=== PATIENT | female | born 1985 | race African-American/Black ===

== ENCOUNTER 2019-08-18 15:22 | Emergency (ER) | payer OTHER ==
[~2019-08-18] VITALS: Ht 162.6 cm; Wt 95.6 kg
[2019-08-18] MEDS ORDERED: prenatal vitamin (15:30)
[2019-08-18] MEDS ORDERED: ACETAMINOPHEN 325 MG TAB PO ONE (18:15)
[2019-08-18 19:09] LABS: BASO % 0.5 % (0.0-1.0); EOS # 0.1 10^3/uL (0.0-0.5); EOS % 0.7 % (0.0-3.0); HEMATOCRIT 41.8 % (36.0-47.0); HEMOGLOBIN 13.5 g/dl (12.0-15.5); LYMPH # 2.9 10^3/uL (1.5-5.0); LYMPH % 34.6 % (24.0-44.0); MEAN CORPUSCULAR HEMOGLOBIN 28.4 pg (27.0-33.0); MEAN CORPUSCULAR HGB CONC 32.3 g/dl (32.0-36.5); MEAN CORPUSCULAR VOLUME 87.8 fl (80.0-96.0); MONO # 0.5 10^3/uL (0.0-0.8); MONO % 5.9 % (0.0-5.0); NEUTROPHILS # 4.8 10^3/uL (1.5-8.5); NEUTROPHILS % 57.9 % (36.0-66.0); PLATELET COUNT, AUTOMATED 204 10^3/uL (150-450); RED BLOOD COUNT 4.76 10^6/uL (4.00-5.40); WHITE BLOOD COUNT 8.4 10^3/uL (4.0-10.0)
[2019-08-18 19:14] LABS: APPEARANCE, URINE CLOUDY (CLEAR); BACTERIA, URINE AUTO 2+ (NEGATIVE); BILIRUBIN, URINE AUTO NEGATIVE (NEGATIVE); BLOOD, URINE BLOOD NEGATIVE (NEGATIVE); COLOR, URINE YELLOW (YELLOW); GLUCOSE, URINE (UA) AUTO NEGATIVE (NEGATIVE); KETONE, URINE AUTO TRACE mg/dL (NEGATIVE); LEUKOCYTE ESTERASE, URINE AUTO 1+ (NEGATIVE); MUCUS, URINE SMALL (NEGATIVE); NITRITE, URINE AUTO POSITIVE (NEGATIVE); PROTEIN, URINE AUTO NEGATIVE (NEGATIVE); RBC, URINE AUTO 2 /HPF (0-3); SPECIFIC GRAVITY URINE AUTO 1.014 (1.002-1.035); SQUAMOUS EPITHELIAL CELL UR AU 20 /HPF (0-6); UROBILINOGEN, URINE AUTO 0.2 mg/dL (0.0-2.0); WBC, URINE AUTO 24 /HPF (0-3)
[2019-08-18 19:31] VITALS: BP 113/59
--- NOTE | 2019-08-18 19:50 | REPVR ---
PROCEDURE INFORMATION: Exam: US First Trimester, Transabdominal Exam date and time: 08/18/2019 6:37 PM Age: 34 years old Clinical indication: complicated by abdominal or pelvic pain; Lower; First trimester; Gestational age or lmp: 5; ; Additional info: Early preg, llq pain, HX of fibroids, ? ectopic TECHNIQUE: Imaging protocol: Real-time transabdominal obstetrical ultrasound of the maternal pelvis and a first trimester , less than 14 weeks 0 days, with image documentation. COMPARISON: No relevant prior studies available. FINDINGS: GESTATION: Gestation: A yolk sac is apparent. There is a live single intrauterine gestation with crown-rump length of 2 mm consistent with 5 week 5 day gestation. Heart rate: heart rate is 89 bpm. Placenta: No subchorionic hemorrhage is identified. Amniotic fluid: Amniotic and chorionic fluid are normal for gestational age. BIOMETRY: Estimated gestational age: 5 weeks 5 days. MATERNAL: Uterus: Two uterine leiomyomata are identified 1st measuring 3.1 x 3.2 x 3.5 cm and the 2nd measuring 4.0 x 4.2 x 4.3 cm. Cervix: Unremarkable. Right adnexa: Right ovary measures 4.4 x 2.8 by 3.4 cm. There may be a corpus luteum. Left adnexa: Left ovary measures 2.7 x 2.8 by 3.9 cm. Intraperitoneal: No intraperitoneal free fluid. Maternal urinary bladder: The maternal urinary bladder is unremarkable. IMPRESSION: Live single intrauterine gestation with ultrasound age of 5 weeks 5 days by crown-rump length with an SHARI of 04/14/2020. Electronically signed by: Slime Morton On 08/18/2019 19:50:16 PM
[2019-08-18 19:55] LABS: ALBUMIN 3.4 GM/DL (3.2-5.2); ALT/SGPT 18 U/L (12-78); BILIRUBIN,TOTAL 0.4 MG/DL (0.2-1.0); BLOOD UREA NITROGEN 8 MG/DL (7-18); CALCIUM LEVEL 8.3 MG/DL (8.5-10.1); CARBON DIOXIDE LEVEL 23 MEQ/L (21-32); CHLORIDE LEVEL 109 MEQ/L (98-107); CREATININE FOR GFR 0.74 MG/DL (0.55-1.30); GLOMERULAR FILTRATION RATE > 60.0 (>60); GLUCOSE, FASTING 76 MG/DL (70-100); HCG, SERUM QUANTITATIVE 4182 MIU/ML; LIPASE 93 U/L (73-393); POTASSIUM SERUM 3.3 MEQ/L (3.5-5.1); SODIUM LEVEL 140 MEQ/L (136-145); TOTAL PROTEIN 6.9 GM/DL (6.4-8.2)
[2019-08-18] MEDS ORDERED: MACR100C43 PO (20:20)
[2019-08-18] MEDS ORDERED: NITROFURANTOIN (MACROBID) 100 MG CAP PO ONE (20:30)
== END 2019-08-18 20:31 | disposition home or self-care (01) ==
LOC: M ED 15:22
DX: O23.41 Unspecified infection of urinary tract in pregnancy, first trimester (principal); Z3A.01 Less than 8 weeks gestation of pregnancy; Z98.890 Other specified postprocedural states

== ENCOUNTER 2019-09-08 07:18 | Emergency (ER) | payer OTHER ==
[~2019-09-08] VITALS: Ht 162.6 cm; Wt 93.5 kg
[~2019-09-08 07:18] MED LIST: MACR100C43 PO; prenatal vitamin
[2019-09-08] MEDS ORDERED: KEFL250C11 PO (07:25)
[2019-09-08 08:14] LABS: BASO # 0.1 10^3/uL (0.0-0.2); BASO % 0.6 % (0.0-1.0); EOS # 0.1 10^3/uL (0.0-0.5); EOS % 1.5 % (0.0-3.0); HEMATOCRIT 39.5 % (36.0-47.0); HEMOGLOBIN 13.3 g/dl (12.0-15.5); LYMPH # 1.9 10^3/uL (1.5-5.0); LYMPH % 22.7 % (24.0-44.0); MEAN CORPUSCULAR HEMOGLOBIN 29.1 pg (27.0-33.0); MEAN CORPUSCULAR HGB CONC 33.7 g/dl (32.0-36.5); MEAN CORPUSCULAR VOLUME 86.4 fl (80.0-96.0); MONO # 0.4 10^3/uL (0.0-0.8); MONO % 4.5 % (0.0-5.0); NEUTROPHILS # 5.8 10^3/uL (1.5-8.5); NEUTROPHILS % 70.5 % (36.0-66.0); PLATELET COUNT, AUTOMATED 205 10^3/uL (150-450); RED BLOOD COUNT 4.57 10^6/uL (4.00-5.40); WHITE BLOOD COUNT 8.3 10^3/uL (4.0-10.0)
[2019-09-08 08:34] LABS: BLOOD UREA NITROGEN 9 MG/DL (7-18); CALCIUM LEVEL 8.7 MG/DL (8.5-10.1); CARBON DIOXIDE LEVEL 26 MEQ/L (21-32); CHLORIDE LEVEL 107 MEQ/L (98-107); CREATININE FOR GFR 0.86 MG/DL (0.55-1.30); GLOMERULAR FILTRATION RATE > 60.0 (>60); GLUCOSE, FASTING 116 MG/DL (70-100); POTASSIUM SERUM 4.2 MEQ/L (3.5-5.1); SODIUM LEVEL 139 MEQ/L (136-145)
--- NOTE | 2019-09-08 08:54 | REP ---
Clinical: Positive test with vaginal bleeding. Comparison: 08/18/2019 Technique: Transabdominal first trimester obstetrical ultrasound with color Doppler evaluation. Findings: Heterogeneous anteverted uterus measures 14.1 x 6.3 x 9.3 cm. Endometrial complex is thickened to 17.2 mm and the previously identified early intrauterine is no longer present. Hemorrhagic debris is identified in the vaginal canal and findings are consistent with spontaneous in progress. Lower uterine segment fibroid measures 4.1 cm maximal diameter and a left intramural fibroid measures 7.3 cm maximal diameter. Bilateral ovaries are normal in appearance and vascularity without torsion. Right ovary measures 4.2 x 2.4 x 3.8 cm (RI 0.72). Left ovary measures 2.8 x 2.5 x 2.6 cm (RI 0.68). No pelvic fluid or adnexal mass lesion. Impression: 1. Findings consistent with spontaneous in progress. 2. Leiomyomatous changes. Electronically Signed by Maicol Sepulveda MD 09/08/2019 08:47 A
[2019-09-08 09:34] LABS: HCG, SERUM QUANTITATIVE 3860 MIU/ML
[2019-09-08 09:40] VITALS: BP 105/55
--- NOTE | 2019-09-09 11:15 | ED PDOC ---
Post-Departure Follow-Up radiology report faxed to [facility] Tita Barbosa MD Sep 09, 2019 11:15
== END 2019-09-08 09:47 | disposition home or self-care (01) ==
LOC: M ED 07:18
DX: O03.9 Complete or unspecified spontaneous abortion without complication (principal); Z3A.08 8 weeks gestation of pregnancy; D25.9 Leiomyoma of uterus, unspecified; Z79.899 Other long term (current) drug therapy

== ENCOUNTER → 2019-09-10 | Outpatient (CLI) | payer OTHER ==
[~2019-09-10] MED LIST changes: +KEFL250C11 PO
--- NOTE | 2019-09-10 17:29 | REPVR ---
PROCEDURE INFORMATION: Exam: US First Trimester, Transabdominal Exam date and time: 09/10/2019 4:30 PM Age: 34 years old Clinical indication: Screening exam; Other: Rpoc; ; Additional info: R/O poc TECHNIQUE: Imaging protocol: Real-time transabdominal obstetrical ultrasound of the maternal pelvis and a first trimester , less than 14 weeks 0 days, with image documentation. COMPARISON: 1ST TRIMESTER US 08/18/2019 6:43 PM FINDINGS: GESTATION: Status post early loss at 8.5 weeks. MATERNAL: Uterus: Uterus measures 12.8 x 6.5 x 8.4 cm. Multiple complex predominantly hypoechoic mass is demonstrated within myometrium the largest located in the left posterior subserosal region measuring 4.4 x 3.9 x 2.8 cm. Findings consistent with the presence of fibroids. Endometrial echo complex measures 8.5 mm. No endometrial mass, hypoechoic or echogenic demonstrated. Cervix: Trace fluid demonstrated in the endocervical canal. Right adnexa: Right ovary measures 3.3 x 1.8 x 2.5 cm. Volume 7.8 cc. Right ovarian cyst measures 1.8 x 1.9 x 2.2 cm. Left adnexa: Left ovary measures 3.2 x 1.9 x 2.5 cm. Volume 7.9 cc. Intraperitoneal: No intraperitoneal free fluid. IMPRESSION: 1. Uterine fibroids. 2. No evidence of retained products of conception. 3. No adnexal masses. Electronically signed by: Denis Barbour On 09/10/2019 17:29:08 PM
== END ==
LOC: M RAD 15:47
PROVIDERS: ATTEND Registered Nurse Maternal Newborn
DX: O03.9 Complete or unspecified spontaneous abortion without complication (principal); D25.2 Subserosal leiomyoma of uterus

== ENCOUNTER → 2019-09-10 | Outpatient (CLI) | payer OTHER ==
[2019-09-10 18:09] LABS: BASO # 0.1 10^3/uL (0.0-0.2); BASO % 0.9 % (0.0-1.0); EOS # 0.1 10^3/uL (0.0-0.5); EOS % 1.4 % (0.0-3.0); HEMATOCRIT 38.3 % (36.0-47.0); HEMOGLOBIN 12.9 g/dl (12.0-15.5); LYMPH # 2.8 10^3/uL (1.5-5.0); LYMPH % 39.6 % (24.0-44.0); MEAN CORPUSCULAR HEMOGLOBIN 29.6 pg (27.0-33.0); MEAN CORPUSCULAR HGB CONC 33.7 g/dl (32.0-36.5); MEAN CORPUSCULAR VOLUME 87.8 fl (80.0-96.0); MONO # 0.5 10^3/uL (0.0-0.8); MONO % 6.6 % (0.0-5.0); NEUTROPHILS # 3.6 10^3/uL (1.5-8.5); NEUTROPHILS % 51.2 % (36.0-66.0); PLATELET COUNT, AUTOMATED 203 10^3/uL (150-450); RED BLOOD COUNT 4.36 10^6/uL (4.00-5.40)
== END ==
LOC: M LAB 17:14
PROVIDERS: ATTEND Registered Nurse Maternal Newborn
DX: Z87.59 Personal history of other complications of pregnancy, childbirth and the puerperium (principal)

== ENCOUNTER 2019-09-19 02:38 | Emergency (ER) | payer OTHER ==
[~2019-09-19] VITALS: Ht 165.1 cm; Wt 94.2 kg
[2019-09-19 03:55] LABS: INFLUENZA A AMPLIFICATION NEGATIVE (NEGATIVE); INFLUENZA B AMPLIFICATION NEGATIVE (NEGATIVE)
[2019-09-19 04:27] LABS: BASO # 0.1 10^3/uL (0.0-0.2); BASO % 0.8 % (0.0-1.0); EOS # 0.1 10^3/uL (0.0-0.5); EOS % 1.5 % (0.0-3.0); HEMATOCRIT 37.9 % (36.0-47.0); HEMOGLOBIN 12.4 g/dl (12.0-15.5); LYMPH # 2.7 10^3/uL (1.5-5.0); LYMPH % 44.2 % (24.0-44.0); MEAN CORPUSCULAR HEMOGLOBIN 28.8 pg (27.0-33.0); MEAN CORPUSCULAR HGB CONC 32.7 g/dl (32.0-36.5); MEAN CORPUSCULAR VOLUME 87.9 fl (80.0-96.0); MONO # 0.5 10^3/uL (0.0-0.8); MONO % 7.4 % (0.0-5.0); NEUTROPHILS # 2.8 10^3/uL (1.5-8.5); NEUTROPHILS % 45.9 % (36.0-66.0); PLATELET COUNT, AUTOMATED 212 10^3/uL (150-450); RED BLOOD COUNT 4.31 10^6/uL (4.00-5.40); WHITE BLOOD COUNT 6.1 10^3/uL (4.0-10.0)
[2019-09-19 04:56] LABS: BLOOD UREA NITROGEN 12 MG/DL (7-18); CALCIUM LEVEL 8.4 MG/DL (8.5-10.1); CARBON DIOXIDE LEVEL 26 MEQ/L (21-32); CHLORIDE LEVEL 112 MEQ/L (98-107); CREATININE FOR GFR 0.84 MG/DL (0.55-1.30); GLOMERULAR FILTRATION RATE > 60.0 (>60); GLUCOSE, FASTING 102 MG/DL (70-100); HCG, SERUM QUANTITATIVE 17 MIU/ML; POTASSIUM SERUM 3.9 MEQ/L (3.5-5.1); SODIUM LEVEL 143 MEQ/L (136-145)
[2019-09-19 06:39] VITALS: BP 123/70
== END 2019-09-19 06:41 | disposition home or self-care (01) ==
LOC: M ED 02:38
DX: F45.9 Somatoform disorder, unspecified (principal); F32.9 Major depressive disorder, single episode, unspecified; D25.9 Leiomyoma of uterus, unspecified; Z87.59 Personal history of other complications of pregnancy, childbirth and the puerperium; Z79.899 Other long term (current) drug therapy

== ENCOUNTER 2019-10-13 03:34 | Emergency (ER) | payer OTHER ==
[~2019-10-13] VITALS: Ht 162.6 cm; Wt 81.8 kg
[~2019-10-13 03:34] MED LIST changes: +KEFL500C17 PO
[2019-10-13] MEDS ORDERED: BENZONATATE 100 MG CAP PO ONE (04:00)
[2019-10-13] MEDS ORDERED: TESS100C PO (04:35)
[2019-10-13 04:52] VITALS: BP 133/73
--- NOTE | 2019-10-13 08:02 | REP ---
Clinical: Cough . Comparison: None . Findings: The mediastinum and cardiac silhouette are stable and within normal limits for portable technique. The lung rodriguez are clear without acute consolidation, effusion, or pneumothorax. Skeletal structures are intact. Impression: No acute cardiopulmonary process appreciated. Electronically Signed by Maicol Sepulveda MD 10/13/2019 07:54 A
== END 2019-10-13 04:54 | disposition home or self-care (01) ==
LOC: M ED 03:34
DX: R05 Cough (principal); R06.02 Shortness of breath
CPT/HCPCS: 71045; 87486; 87581; 87633; 87798; 99283; U0002

== ENCOUNTER → 2019-10-31 | Outpatient (CLI) | payer OTHER ==
[~2019-10-31] MED LIST changes: +TESS100C PO
--- NOTE | 2019-11-01 07:42 | REP ---
TWO-VIEW CHEST: REASON: Intermittent cough times four weeks. COMPARISON: No priors. FINDINGS: The superior mediastinal structures are midline. The cardiac silhouette is unremarkable in size, shape, and position. The diaphragmatic surfaces of the lungs are regular, and the costophrenic angles are clear. The pulmonary rodriguez are clear. The imaged osseous structures are intact. IMPRESSION: There is no acute cardiopulmonary disease. Electronically Signed by Juan Carols Paulino DO 11/01/2019 08:09 A
--- NOTE | 2019-11-01 07:44 | REP ---
FOOT: REASON: Atraumatic pain. COMPARISON: None. FINDINGS: The joint spaces are symmetric and relatively well maintained. There is no evidence of acute fracture or destructive osseous lesion. IMPRESSION: Negative. Note is made of an os naviculare. Electronically Signed by Juan Carlos Paulino DO 11/01/2019 08:09 A
== END ==
LOC: M LRY 15:55
PROVIDERS: ATTEND Physician Assistant
DX: R05 Cough (principal); M79.671 Pain in right foot

== ENCOUNTER 2019-11-17 22:47 | Emergency (ER) | payer OTHER ==
[~2019-11-17] VITALS: Ht 162.6 cm; Wt 95.6 kg
[2019-11-17] MEDS ORDERED: MAPA500T2 PO (22:53)
[2019-11-17] MEDS ORDERED: CETIRIZINE (ZyrTEC) 10 MG TAB PO ONE (23:45)
[2019-11-17] MEDS ORDERED: ALBUTEROL 90 MCG/ACT 8GM HFA INHALER INH ONE (23:45)
[2019-11-17] MEDS ORDERED: NAPROXEN 250 MG TAB PO ONE (23:45)
[2019-11-18] MEDS ORDERED: BENZONATATE 100 MG CAP PO ONE
[2019-11-18] MEDS ORDERED: NS 1,000 ML IV ONE (00:15)
[2019-11-18 01:10] LABS: BASO % 0.5 % (0.0-1.0); EOS # 0.1 10^3/uL (0.0-0.5); EOS % 1.2 % (0.0-3.0); HEMATOCRIT 38.3 % (36.0-47.0); HEMOGLOBIN 12.9 g/dl (12.0-15.5); LYMPH # 2.9 10^3/uL (1.5-5.0); LYMPH % 38.7 % (24.0-44.0); MEAN CORPUSCULAR HEMOGLOBIN 29.2 pg (27.0-33.0); MEAN CORPUSCULAR HGB CONC 33.7 g/dl (32.0-36.5); MEAN CORPUSCULAR VOLUME 86.7 fl (80.0-96.0); MONO # 0.4 10^3/uL (0.0-0.8); MONO % 5.7 % (0.0-5.0); NEUTROPHILS # 4.1 10^3/uL (1.5-8.5); NEUTROPHILS % 53.6 % (36.0-66.0); PLATELET COUNT, AUTOMATED 170 10^3/uL (150-450); RED BLOOD COUNT 4.42 10^6/uL (4.00-5.40); WHITE BLOOD COUNT 7.6 10^3/uL (4.0-10.0)
[2019-11-18 01:27] LABS: HCG, SERUM QUALITATIVE NEGATIVE (NEGATIVE)
[2019-11-18 01:28] LABS: ERYTHROCYTE SEDIMENTATION RATE 13 mm/hr (0-20)
[2019-11-18 01:35] LABS: ALBUMIN 3.5 GM/DL (3.2-5.2); ALT/SGPT 29 U/L (12-78); BILIRUBIN,TOTAL 0.3 MG/DL (0.2-1.0); BLOOD UREA NITROGEN 14 MG/DL (7-18); C REACTIVE PROTEIN QUANTITATIV 0.48 MG/DL (0.00-0.30); CALCIUM LEVEL 8.8 MG/DL (8.5-10.1); CARBON DIOXIDE LEVEL 28 MEQ/L (21-32); CHLORIDE LEVEL 106 MEQ/L (98-107); CK-MB VALUE MASS < 1.0 NG/ML (<3.6); CPK CREATINE PHOSPHOKINASE 95 U/L (26-192); CREATININE FOR GFR 0.92 MG/DL (0.55-1.30); FREE THYROXINE INDEX 2.8 % (1.3-4.8); GLOMERULAR FILTRATION RATE > 60.0 (>60); GLUCOSE, FASTING 110 MG/DL (70-100); MAGNESIUM LEVEL 1.6 MG/DL (1.8-2.4); MB/CK RELATIVE INDEX 1.05 (< OR =4); POTASSIUM SERUM 3.7 MEQ/L (3.5-5.1); SODIUM LEVEL 139 MEQ/L (136-145); T UPTAKE 37 % (30-39); THYROXINE (T4) 7.7 UG/DL (4.5-12.0); TOTAL PROTEIN 7.3 GM/DL (6.4-8.2); TROPONIN I < 0.02 NG/ML (< 0.10)
[2019-11-18] MEDS ORDERED: MAGICMW SSP (01:36)
[2019-11-18] MEDS ORDERED: NAPR-837 PO (01:36)
[2019-11-18] MEDS ORDERED: PROAAER10 INH (01:36)
[2019-11-18] MEDS ORDERED: TESS100C PO (01:36)
[2019-11-18 02:45] VITALS: BP 134/69
--- NOTE | 2019-11-18 02:49 | REP ---
Clinical: Dyspnea. Alvarez virus workup. Comparison: 10/31/2019 . Findings: The mediastinum and cardiac silhouette are stable and within normal limits for portable technique. The lung rodriguez are clear without acute consolidation, effusion, or pneumothorax. Skeletal structures are intact. Impression: No acute cardiopulmonary process appreciated. Electronically Signed by Maicol Sepulveda MD 11/18/2019 02:40 A
--- NOTE | 2019-11-18 16:41 | ECGEPIP ---
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
[2019-11-19 14:16] LABS: ANTINUCLEAR ANTIBODIES DIRECT Negative (Negative)
--- NOTE | 2019-11-19 23:13 | ED PDOC ---
Post-Departure Follow-Up I called patient yesterday 11/18/2019 with negative respiratory test results and instructed her to stay home in quarantine until she hears from [facility] regarding her COVID-19 test results. I then called patient jarrod 11/19/2019 regarding her COVID-19 test results, the patient stated that [facility] had not called her with the results today. I told her that the results were negative and that she does not need to remain in quarantine. The patient stated that she is feeling much better since taking the medications I prescribed the other night. She will followup with her primary care provider. 11/19/2019 [id number] STACEY MULTANI PA-C Nov 19, 2019 23:13
== END 2019-11-18 03:06 | disposition home or self-care (01) ==
LOC: M ED 22:47
DX: M79.10 Myalgia, unspecified site (principal); R68.83 Chills (without fever); R07.89 Other chest pain; R05 Cough; R51 Headache; J02.9 Acute pharyngitis, unspecified; Z20.828 Contact with and (suspected) exposure to other viral communicable diseases; Z79.899 Other long term (current) drug therapy; Z79.1 Long term (current) use of non-steroidal anti-inflammatories (NSAID)
CPT/HCPCS: 71045; 80047; 80053; 82550; 82553; 83735; 84436; 84443; 84479; 84484; 84703; 85025; 85652; 86038; 86140; 87486; 87581; 87633; 87798; 93005; 96360; 96361; 99284; U0002

== ENCOUNTER → 2019-12-08 | Outpatient (CLI) | payer OTHER ==
[~2019-12-08] MED LIST changes: +MAGICMW SSP; +MAPA500T2 PO; +NAPR-837 PO; +PROAAER10 INH; +PROHANCE 279.3MG/ML 15ML VIAL As Ordered ONE; +PROHANCE 279.3MG/ML 5ML VIAL As Ordered ONE
--- NOTE | 2019-12-08 16:33 | REP ---
MRI PELVIS WITH AND WITHOUT CONTRAST: TECHNIQUE: Multiple sequences obtained in the axial, coronal, and sagittal planes prior to and following the intravenous administration of 19 mL ProHance. Uterus is enlarged. Length is approximately 11.6 cm. Junctional zone is not well defined. Endometrial thickness is 9 mm. There are multiple fibroids present. The largest are on the left displacing the endometrium in the body and lower uterine segment toward the right. In the anterior lower uterine segment, there is a large fibroid which measures 3.0 x 3.4 x 2.8 cm. Lateral to this on the left, is an exophytic subserosal fibroid which measures 3.1 x 2.9 x 2.7 cm. Just above this in the left body of the uterus, there is a fibroid which measures 3.0 x 2.8 cm which is an intramural fibroid. In the right uterine body, an intramural fibroid is seen measuring 1.7 x 1.5 x 1.2 cm. In the anterior left fundus, there is a fibroid measuring approximately 9 mm in diameter. In the posterior left uterine fundus, there is a 1 cm intramural fibroid. There also appear to be a few other scattered smaller subcentimeter fibroids in the body and fundus of the uterus. The ovaries appear normal with normal-sized follicles. There is no adnexal mass. There is mild free fluid. I see no adenopathy in the pelvis. IMPRESSION: Enlarged fibroid uterus. All of the fibroids are intramural except for a subserosal fibroid in the left lower uterine segment. Largest fibroids are in the left body and lower uterine segment displacing the endometrial echo complex to the right. Mild free fluid. Normal-appearing ovaries with no evidence of adnexal mass. Electronically Signed by Aníbal Mullins MD 12/08/2019 04:57 P
== END ==
LOC: M RAD 13:14
PROVIDERS: ATTEND Obstetrics & Gynecology
DX: D25.9 Leiomyoma of uterus, unspecified (principal)
CPT/HCPCS: 72197; A9576

== ENCOUNTER → 2021-01-03 | Outpatient (CLI) | payer OTHER ==
[~2021-01-03] MED LIST changes: +CEFD1CAP8 PO; +IBUP-1022 PO; -PROHANCE 279.3MG/ML 15ML VIAL As Ordered ONE; -PROHANCE 279.3MG/ML 5ML VIAL As Ordered ONE
[2021-01-03 16:33] LABS: BASO % 0.6 % (0.0-1.0); EOS # 0.1 10^3/uL (0.0-0.5); EOS % 1.6 % (0.0-3.0); HEMATOCRIT 38.4 % (36.0-47.0); HEMOGLOBIN 12.7 g/dl (12.0-15.5); LYMPH # 2.5 10^3/uL (1.5-5.0); LYMPH % 37.8 % (24.0-44.0); MEAN CORPUSCULAR HEMOGLOBIN 28.3 pg (27.0-33.0); MEAN CORPUSCULAR HGB CONC 33.1 g/dl (32.0-36.5); MEAN CORPUSCULAR VOLUME 85.5 fl (80.0-96.0); MONO # 0.5 10^3/uL (0.0-0.8); MONO % 7.5 % (2.0-8.0); NEUTROPHILS # 3.5 10^3/uL (1.5-8.5); NEUTROPHILS % 52.4 % (36.0-66.0); PLATELET COUNT, AUTOMATED 227 10^3/uL (150-450); RED BLOOD COUNT 4.49 10^6/uL (4.00-5.40); WHITE BLOOD COUNT 6.7 10^3/uL (4.0-10.0)
[2021-01-03 17:06] LABS: BLOOD UREA NITROGEN 8 MG/DL (7-18); CARBON DIOXIDE LEVEL 27 MEQ/L (21-32); CHLORIDE LEVEL 107 MEQ/L (98-107); GLOMERULAR FILTRATION RATE > 60.0 (>60); GLUCOSE, FASTING 151 MG/DL (70-100); POTASSIUM SERUM 3.9 MEQ/L (3.5-5.1); SODIUM LEVEL 140 MEQ/L (136-145)
[2021-01-03 17:07] LABS: ALBUMIN 3.6 GM/DL (3.2-5.2); ALT/SGPT 21 U/L (12-78); AMYLASE 97 U/L (25-115); BILIRUBIN,TOTAL 0.3 MG/DL (0.2-1.0); FREE T4 0.91 NG/DL (0.76-1.46); HCG, SERUM QUANTITATIVE < 1.0 MIU/ML; LIPASE 90 U/L (73-393); THYROID STIMULATING HORMONE 0.982 uIU/ML (0.358-3.740); TOTAL PROTEIN 7.5 GM/DL (6.4-8.2)
[2021-01-03 19:28] LABS: HEMOGLOBIN A1c 5.1 %
--- NOTE | 2021-01-04 02:16 | REP ---
INDICATION: ABDOMINAL PAIN COMPARISON: None. TECHNIQUE: Supine view of the abdomen and pelvis. FINDINGS: Bowel gas pattern is nonspecific and without obstruction or perforation. No organomegaly. No abnormal calcifications. Skeletal structures intact. IMPRESSION: Normal, nonspecific abdominal radiograph. <Electronically signed by Maicol Sepulveda > 01/04/21 [id number]
== END ==
LOC: M WUC 14:19
PROVIDERS: ATTEND Physician Assistant
DX: R10.84 Generalized abdominal pain (principal); R73.9 Hyperglycemia, unspecified

== ENCOUNTER 2021-01-04 02:42 | Emergency (ER) | payer OTHER ==
[~2021-01-04] VITALS: Ht 167.6 cm; Wt 104.4 kg
[~2021-01-04 02:42] MED LIST changes: -CEFD1CAP8 PO; -IBUP-1022 PO
[2021-01-04 03:36] LABS: URINE PREG TEST NEGATIVE (NEGATIVE)
[2021-01-04] MEDS ORDERED: cefTRIAXone SOD 1 GM in D5W MINI-BAG PLUS 50 ML IV ONE (06:40)
[2021-01-04] MEDS ORDERED: NS 1,000 ML IV ONE (06:40)
[2021-01-04 08:04] LABS: BASO % 0.6 % (0.0-1.0); EOS # 0.1 10^3/uL (0.0-0.5); EOS % 1.5 % (0.0-3.0); HEMATOCRIT 39.7 % (36.0-47.0); HEMOGLOBIN 13.1 g/dl (12.0-15.5); LYMPH # 2.6 10^3/uL (1.5-5.0); LYMPH % 39.3 % (24.0-44.0); MEAN CORPUSCULAR HEMOGLOBIN 28.3 pg (27.0-33.0); MEAN CORPUSCULAR VOLUME 85.7 fl (80.0-96.0); MONO # 0.4 10^3/uL (0.0-0.8); MONO % 6.2 % (2.0-8.0); NEUTROPHILS # 3.4 10^3/uL (1.5-8.5); NEUTROPHILS % 52.2 % (36.0-66.0); PLATELET COUNT, AUTOMATED 205 10^3/uL (150-450); RED BLOOD COUNT 4.63 10^6/uL (4.00-5.40); WHITE BLOOD COUNT 6.6 10^3/uL (4.0-10.0)
[2021-01-04 08:31] LABS: HCG, SERUM QUALITATIVE NEGATIVE (NEGATIVE)
[2021-01-04 08:35] LABS: ALBUMIN 3.5 GM/DL (3.2-5.2); ALT/SGPT 24 U/L (12-78); BILIRUBIN,DIRECT < 0.1 MG/DL (0.0-0.2); BILIRUBIN,TOTAL 0.6 MG/DL (0.2-1.0); LIPASE 74 U/L (73-393); TOTAL PROTEIN 7.3 GM/DL (6.4-8.2)
--- NOTE | 2021-01-04 10:33 | REP ---
INDICATION: lower abd pain, irregular menses COMPARISON: MRI dated 12/08/2019 TECHNIQUE: Transabdominal pelvic ultrasound followed by transvaginal examination for better evaluation of the endometrium and adnexa with color Doppler evaluation of the ovaries. FINDINGS: Bladder is unremarkable and measures 7.7 x 4.4 x 5.0 cm. Enlarged myomatous uterus measures 10.2 x 5.5 x 6.9 cm. The endometrial complex measures 4 mm thickness. Multiple fibroids are identified measuring up to 3.9 cm maximal diameter no definite submucosal fibroid is noted by current images. Left ovary is not visualized. Right ovary appears normal and measures 2.9 x 1.6 x 1.7 cm (RI 0.50). No pelvic fluid or adnexal mass lesion IMPRESSION: Enlarged myomatous uterus similar to MRI dated 12/08/2019. <Electronically signed by Maicol Sepulveda > 01/04/21 [id number]
[2021-01-04] MEDS ORDERED: CEFD1CAP8 PO (10:45)
[2021-01-04] MEDS ORDERED: IBUP-1022 PO (10:45)
[2021-01-04 11:00] VITALS: BP 161/75
--- NOTE | 2021-01-04 13:50 | ED PDOC ---
Post-Departure Follow-Up certiifed letter sent to pt re formal read of pelvic us - needs fu. 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
== END 2021-01-04 10:08 | disposition home or self-care (01) ==
LOC: M ED 02:42
DX: N39.0 Urinary tract infection, site not specified (principal); N85.2 Hypertrophy of uterus; N92.6 Irregular menstruation, unspecified; J45.909 Unspecified asthma, uncomplicated
CPT/HCPCS: 36415; 76830; 76856; 80047; 80076; 81001; 83690; 84703; 85025; 87088; 87186; 93976; 96365; 96366; 99284; J0696

== ENCOUNTER 2022-01-08 01:38 | Emergency (ER) | payer OTHER ==
[~2022-01-08] VITALS: Ht 162.6 cm; Wt 104.3 kg
[2022-01-08 01:38] VITALS: BP 130/80
[~2022-01-08 01:38] MED LIST changes: +CEFD300C41 PO; +IBUP-1022 PO
[2022-01-08] MEDS ORDERED: BENZ200C70 PO (05:31)
[2022-01-08] MEDS ORDERED: VENTAER INH (05:31)
== END 2022-01-08 06:10 | disposition home or self-care (01) ==
LOC: M ED 01:38
DX: U07.1 COVID-19 (principal)